=== PATIENT | female | born 1995 | race Caucasian/White ===

== ENCOUNTER 2018-11-26 20:11 | Emergency (ER) | payer BC ==
[2018-11-26] MEDS ORDERED: ONDANSETRON ODT 8 MG PO ONE (21:00)
--- NOTE | 2018-11-26 21:20 | NUR ---
CT CALLED FOR PT AT THIS TIME. PT SLEEPING IN [facility] WITH FRIENDS AT BS.
--- NOTE | 2018-11-26 21:51 | NUR ---
PT ASLEEP IN [facility] AT THIS TIME. PT FRIENDS AT .
--- NOTE | 2018-11-26 22:34 | NUR ---
PT FRIENDS AT BS WITH PT. PT ASLEEP. VSS.
--- NOTE | 2018-11-26 23:08 | NUR ---
PT D/C WITH D/C SUMMARY IN CARE OF FRIENDS. PT AMBUALTES WITH STEADY GAIT. PT AAO X 4 PRIOR TO D/C. PT DENIES ANY OTHER NEEDS PERTAINING TO THIS VISIT.
[2018-11-26 23:14] VITALS: BP 97/64
== END 2018-11-26 23:35 | disposition home or self-care (01) ==
LOC: ED 21:56
DX: S09.90XA Unspecified injury of head, initial encounter (principal); R41.82 Altered mental status, unspecified; F10.121 Alcohol abuse with intoxication delirium; W18.30XA Fall on same level, unspecified, initial encounter; Y93.89 Activity, other specified; Y92.89 Other specified places as the place of occurrence of the external cause; Y99.8 Other external cause status
CPT/HCPCS: 70450; 99284

== ENCOUNTER 2020-04-23 00:18 | Emergency (ER) | payer BC ==
[~2020-04-23] VITALS: Ht 167.6 cm; Wt 70.0 kg
[2020-04-23] MEDS ORDERED: ONDANSETRON 2MG/ML, 2ML IVPush ONE (00:30)
[2020-04-23] MEDS ORDERED: LIDOCAINE-MPF 1%, 5ML INFIL ONE (00:30)
[2020-04-23] MEDS ORDERED: SODIUM CHLORIDE 0.9% 1,000 ML IV ONE (00:30)
[2020-04-23] MEDS ORDERED: SODIUM CHLORIDE FLUSH 10ML SYR IVF ONE (00:30)
--- NOTE | 2020-04-23 00:40 | NUR ---
AARON [place] [phone]
[2020-04-23 00:51] LABS: ALBUMIN 3.9 g/dL (3.4-5.0); ANION GAP 7 mmol/L (5-15); CALCIUM 8.5 mg/dL (8.5-10.1); CHLORIDE 110 mmol/L (98-107); CREATININE 0.92 mg/dL (0.55-1.02)
[2020-04-23 00:54] LABS: BASOPHILS % (AUTO) 1 % (0-1); EOSINOPHILS % (AUTO) 2 % (1-7); LYMPHOCYTES % (AUTO) 34 % (22-44); MD NO; MEAN CORPUSCULAR HEMOGLOBIN 33.2 pg (27.0-34.8); MEAN CORPUSCULAR HGB CONC 34.3 g/dL (32.4-35.8); MEAN PLATELET VOLUME 7.5 fL (7.4-10.4); MONOCYTES % (AUTO) 8 % (2-9); NEUTROPHILS % (AUTO) 55 % (42-75); PLATELET COUNT 346 x10^3/uL (130-400); RED CELL DISTRIBUTION WIDTH 11.9 % (9.6-15.2)
[2020-04-23] MEDS ORDERED: LIDOCAINE-MPF 1%, 5ML ONE (01:15)
[2020-04-23] MEDS ORDERED: NEOSPORIN OINT. PKT 1 PACKET ONE (01:55)
--- NOTE | 2020-04-23 01:56 | NUR ---
nancy pruitt at for suture. pt resting on gurney, nad, appears to be comfortable, eyes closed, even and unlabored respirations. malathi.
--- NOTE | 2020-04-23 03:12 | NUR ---
pt resting on gurney, appears comfortable, nad, no change in condition, eyes closed, even and unlabored respirations. wctm. pt friend states address for taxi is [facility] [address] call friend (Susan) prior to dc at [phone]
--- NOTE | 2020-04-23 03:42 | NUR ---
pt resting on gulia, nad, no change in condition, wctm. MTF
--- NOTE | 2020-04-23 04:10 | NUR ---
REPORT TO JOEL HOLLAND, PT CARE TRANSFERRED AT THIS TIME. PT NAD, NO CHANGE IN CONDITION.
--- NOTE | 2020-04-23 06:15 | NUR ---
Pt continues to rest comfortably on stretcher. Remains on continuous tele/O2 monitoring. VSS. Visible chest rise/fall noted. Maintaining airway. No s/sx acute distress. Bed low, side rails up, call addison within reach
[2020-04-23 06:44] VITALS: BP 100/63
--- NOTE | 2020-04-23 06:54 | NUR ---
REPORT FROM JOEL
--- NOTE | 2020-04-23 07:55 | NUR ---
PT AWAKE AND CRYING. FRIEND WILL BE COMING TO [facility]
--- NOTE | 2020-04-23 08:36 | NUR ---
PT WALKED OUT W OUT DC PAPERS
== END 2020-04-23 08:38 | disposition home or self-care (01) ==
LOC: ED 08:00
DX: S06.0X9A Concussion with loss of consciousness of unspecified duration, initial encounter (principal); S01.81XA Laceration without foreign body of other part of head, initial encounter; F10.129 Alcohol abuse with intoxication, unspecified; W01.0XXA Fall on same level from slipping, tripping and stumbling without subsequent striking against object, initial encounter; Y93.89 Activity, other specified; Y92.098 Other place in other non-institutional residence as the place of occurrence of the external cause; Y99.8 Other external cause status; Y90.9 Presence of alcohol in blood, level not specified
CPT/HCPCS: 12052; 36415; 70450; 70486; 72125; 80048; 80307; 82040; 85025; 99285

== ENCOUNTER 2020-05-03 12:52 | Emergency (ER) | payer BC ==
[~2020-05-03] VITALS: Ht 170.2 cm; Wt 69.9 kg
[2020-05-03 13:09] VITALS: BP 140/79
== END 2020-05-03 13:56 | disposition home or self-care (01) ==
LOC: ED 13:15
DX: S01.81XD Laceration without foreign body of other part of head, subsequent encounter (principal); Z48.02 Encounter for removal of sutures; W19.XXXD Unspecified fall, subsequent encounter
CPT/HCPCS: 99281